=== PATIENT | male | born 1955 | race Caucasian/White ===

== ENCOUNTER 2017-02-02 20:10 | Emergency (ER) | payer BC ==
[~2017-02-02] VITALS: Ht 188 cm; Wt 101.5 kg
[~2017-02-02 20:10] MED LIST: AUGMENTIN875 MG PO; CLONAZEPAM0.5 MG PO; Ecotrin PO; FINASTERIDE5 MG PO; FLEXERIL10 MG PO; LEXAPRO10 MG PO; LIPITOR40 MG PO; MOTRIN600 MG PO; NORCO 5/3251 TABLET PO; SKELAXIN800 MG PO; TAMSULOSIN HCL0.4 MG PO; VITAMIN D2000 UNIT PO; [UNRECOGNIZED DRUG - REMARK] PO
[2017-02-02 20:46] LABS: HEMATOCRIT 48.4 % (38.0-50.0); MCH 28.6 PG (29.0-34.0); MCHC 33.3 G/DL (30.0-36.0); MEAN PLAT.VOLUME 10.4 uM^3 (9.0-12.4); PLATELET COUNT 221 K/uL (156-360); RBC DIS.WIDTH-CV 12.8 % (11.8-14.6); RBC DIS.WIDTH-SD 39.4 % (39-53); RED BLOOD COUNT 5.63 M/uL (4.00-5.50)
[2017-02-02 20:51] LABS: CHLORIDE 106 mEq/L (99-109); SODIUM 140 mEq/L (136-147)
[2017-02-02 20:53] LABS: GLUCOSE 110 mg/dL (70-99)
[2017-02-02 20:54] LABS: ANION GAP 14 MEQ/L (2-14)
[2017-02-02 20:55] LABS: TOTAL BILIRUBIN 1.7 mg/dL (0.0-1.0)
[2017-02-02 20:56] LABS: ALKALINE PHOSPHATASE 74 IU/L (3-129)
[2017-02-02 20:57] LABS: GFR ESTIMATE (CALCULATED) 54 mL/min/
[2017-02-02 20:58] LABS: UREA NITROGEN (BUN) 15 mg/dL (9-23)
[2017-02-02 21:33] LABS: ADD MIUA? YES; BILIRUBIN NEGATIVE; BLOOD MODERATE; COLOR YELLOW ((YELLOW)); GLUCOSE (STRIP) NEGATIVE; KETONES NEGATIVE; LEUKOCYTES TRACE; NITRITE NEGATIVE; PROTEIN (STRIP) 30; SPECIFIC GRAVITY 1.018 (1.000-1.030); UROBILINOGEN 0.2 MG/DL (0.2-1.0)
[2017-02-02 21:40] LABS: BACTERIA RARE /HPF; CALCIUM OXALATE CRYSTALS 2+ /HPF; EPITHELIAL CELLS RARE /HPF; MUCUS TRACE /LPF; RED BLOOD CELLS 40-50 /HPF (0-5); UCUL ADDED? NO
[2017-02-02] MEDS ORDERED: NORCO 5/3251 TABLET PO (23:10)
[2017-02-02] MEDS ORDERED: CIPRO500 MG PO (23:10)
[2017-02-02] MEDS ORDERED: ZOFRAN4 MG PO (23:10)
[2017-02-02 23:55] VITALS: BP 137/84
== END 2017-02-02 23:56 | disposition home or self-care (01) ==
LOC: EME 20:10
PROVIDERS: Physician Assistant
DX: N20.0 Calculus of kidney (principal); R11.2 Nausea with vomiting, unspecified; E78.5 Hyperlipidemia, unspecified; Z87.891 Personal history of nicotine dependence
CPT/HCPCS: 74176; 80053; 81003; 85027; 99281; 99284; J2270; J2405; J7030

== ENCOUNTER 2017-02-23 23:47 | Observation (INO) | payer BC ==
[~2017-02-23] VITALS: Ht 188 cm; Wt 101.6 kg
[~2017-02-23 23:47] MED LIST changes: +CIPRO500 MG PO; +ZOFRAN4 MG PO
[2017-02-24 00:23] LABS: HEMATOCRIT 47.6 % (38.0-50.0); MCH 28.2 PG (29.0-34.0); MCHC 32.1 G/DL (30.0-36.0); MCV 87.7 FL (86-99); MEAN PLAT.VOLUME 9.1 uM^3 (9.0-12.4); PLATELET COUNT 230 K/uL (156-360); RBC DIS.WIDTH-CV 12.3 % (11.8-14.6); RBC DIS.WIDTH-SD 39.4 % (39-53); RED BLOOD COUNT 5.43 M/uL (4.00-5.50); WHITE BLOOD COUNT 10.7 K/uL (4.1-10.2)
[2017-02-24 00:36] LABS: CHLORIDE 104 mEq/L (99-109); POTASSIUM 4.1 mEq/L (3.7-5.4); SODIUM 138 mEq/L (136-147)
[2017-02-24 00:38] LABS: GLUCOSE 98 mg/dL (70-99)
[2017-02-24 00:39] LABS: ANION GAP 9 MEQ/L (2-14)
[2017-02-24 00:40] LABS: TOTAL BILIRUBIN 1.7 mg/dL (0.0-1.0)
[2017-02-24 00:41] LABS: ALKALINE PHOSPHATASE 69 IU/L (3-129)
[2017-02-24 00:42] LABS: GFR ESTIMATE (CALCULATED) 50 mL/min/
[2017-02-24 00:43] LABS: UREA NITROGEN (BUN) 18 mg/dL (9-23)
[2017-02-24] MEDS ORDERED: PERCOCET 5/31 TABLET PO (00:57)
[2017-02-24 03:00] LABS: COLOR YELLOW ((YELLOW)); LEUKOCYTES TRACE; NITRITE NEGATIVE; SPECIFIC GRAVITY 1.018 (1.000-1.030)
[2017-02-24 03:01] LABS: ADD MIUA? YES; BILIRUBIN NEGATIVE; BLOOD MODERATE; GLUCOSE (STRIP) NEGATIVE; KETONES NEGATIVE; PROTEIN (STRIP) NEGATIVE; RED BLOOD CELLS TNTC /HPF (0-5); UROBILINOGEN 0.2 MG/DL (0.2-1.0)
[2017-02-24 03:02] LABS: WHITE BLOOD CELLS 15-20 /HPF (0-5)
[2017-02-24 03:03] LABS: BACTERIA NONE SEEN /HPF; CALCIUM OXALATE CRYSTALS 1+ /HPF; CASTS NONE SEEN /LPF; CRYSTALS PRESENT; EPITHELIAL CELLS RARE /HPF; MUCUS 1+ /LPF; UCUL ADDED? NO
[2017-02-24 06:06] VITALS: BP 132/61
[2017-02-24 07:50] VITALS: BP 93/51
== END 2017-02-24 11:08 | disposition home or self-care (01) ==
LOC: EME 23:47 → EDOF 02-24 05:04 → 5WEST 02-24 05:52
PROVIDERS: Physician Assistant
DX: N13.2 Hydronephrosis with renal and ureteral calculous obstruction (principal); N17.9 Acute kidney failure, unspecified; N39.0 Urinary tract infection, site not specified
CPT/HCPCS: 74176; 80053; 81003; 85027; 99281; 99285; G0378; J0696; J1956; J2270; J2405; J7030; J7050; J7512; S0028

== ENCOUNTER 2017-02-25 01:36 | Emergency (ER) | payer BC ==
[~2017-02-25] VITALS: Ht 188 cm; Wt 102.1 kg
[~2017-02-25 01:36] MED LIST changes: +PERCOCET 5/31 TABLET PO
[2017-02-25 02:01] LABS: HEMATOCRIT 46.2 % (38.0-50.0); MCH 28.4 PG (29.0-34.0); MCHC 32.5 G/DL (30.0-36.0); MCV 87.3 FL (86-99); MEAN PLAT.VOLUME 9.5 uM^3 (9.0-12.4); PLATELET COUNT 223 K/uL (156-360); RBC DIS.WIDTH-CV 12.3 % (11.8-14.6); RED BLOOD COUNT 5.29 M/uL (4.00-5.50); WHITE BLOOD COUNT 11.9 K/uL (4.1-10.2)
[2017-02-25 02:11] LABS: CHLORIDE 105 mEq/L (99-109); SODIUM 139 mEq/L (136-147)
[2017-02-25 02:13] LABS: GLUCOSE 110 mg/dL (70-99)
[2017-02-25 02:14] LABS: ANION GAP 11 MEQ/L (2-14)
[2017-02-25 02:16] LABS: GFR ESTIMATE (CALCULATED) > 59 mL/min/
[2017-02-25 02:17] LABS: UREA NITROGEN (BUN) 18 mg/dL (9-23)
[2017-02-25 03:02] LABS: ADD MIUA? YES; BILIRUBIN NEGATIVE; BLOOD MODERATE; COLOR YELLOW ((YELLOW)); GLUCOSE (STRIP) NEGATIVE; KETONES NEGATIVE; LEUKOCYTES TRACE; NITRITE NEGATIVE; PROTEIN (STRIP) NEGATIVE; SPECIFIC GRAVITY 1.017 (1.000-1.030); UROBILINOGEN 0.2 MG/DL (0.2-1.0)
[2017-02-25 03:09] LABS: BACTERIA NONE SEEN /HPF; EPITHELIAL CELLS RARE /HPF; MUCUS TRACE /LPF; RED BLOOD CELLS 40-50 /HPF (0-5); UCUL ADDED? NO
[2017-02-25 04:15] VITALS: BP 140/76
== END 2017-02-25 04:16 | disposition home or self-care (01) ==
LOC: EME 01:36
DX: N13.2 Hydronephrosis with renal and ureteral calculous obstruction (principal); E78.5 Hyperlipidemia, unspecified; Z87.442 Personal history of urinary calculi; Z88.7 Allergy status to serum and vaccine; Z87.891 Personal history of nicotine dependence
CPT/HCPCS: 74176; 80048; 81003; 85027; 87086; 99281; 99285; J1885; J2270; J2405

== ENCOUNTER 2017-02-27 05:27 | Day surgery (SDC) | payer BC ==
[~2017-02-27] VITALS: Ht 188 cm; Wt 101.6 kg
[2017-02-27 05:55] VITALS: BP 130/71
[2017-02-27 09:15] VITALS: BP 128/75
[2017-02-27 10:20] VITALS: BP 114/68
[2017-02-27 12:00] VITALS: BP 127/71
== END 2017-02-27 12:17 | disposition home or self-care (01) ==
LOC: SDC 05:27
PROVIDERS: Urology
DX: N20.1 Calculus of ureter (principal); N21.0 Calculus in bladder; N40.1 Benign prostatic hyperplasia with lower urinary tract symptoms; R35.0 Frequency of micturition; R35.1 Nocturia; R39.12 Poor urinary stream; E78.00 Pure hypercholesterolemia, unspecified; K21.9 Gastro-esophageal reflux disease without esophagitis; F41.8 Other specified anxiety disorders; G47.30 Sleep apnea, unspecified; Z87.891 Personal history of nicotine dependence; Z80.1 Family history of malignant neoplasm of trachea, bronchus and lung
CPT/HCPCS: 74420; 82365 90; C1758; C1769; C1876; J1100; J1885; J2250; J2405; J3010; J3370

== ENCOUNTER 2017-05-07 07:54 | Emergency (ER) | payer BC ==
[~2017-05-07] VITALS: Ht 188 cm; Wt 100.0 kg
[2017-05-07 08:34] LABS: HEMATOCRIT 47.1 % (38.0-50.0); MCH 28.7 PG (29.0-34.0); MCHC 32.9 G/DL (30.0-36.0); MCV 87.1 FL (86-99); MEAN PLAT.VOLUME 9.5 uM^3 (9.0-12.4); PLATELET COUNT 206 K/uL (156-360); RBC DIS.WIDTH-CV 12.7 % (11.8-14.6); RBC DIS.WIDTH-SD 40.2 % (39-53); RED BLOOD COUNT 5.41 M/uL (4.00-5.50)
[2017-05-07 08:45] LABS: CHLORIDE 105 mEq/L (99-109); POTASSIUM 3.9 mEq/L (3.7-5.4); SODIUM 138 mEq/L (136-147)
[2017-05-07 08:47] LABS: GLUCOSE 148 mg/dL (70-99)
[2017-05-07 08:48] LABS: ANION GAP 11 MEQ/L (2-14)
[2017-05-07 08:50] LABS: GFR ESTIMATE (CALCULATED) > 59 mL/min/
[2017-05-07 08:51] LABS: UREA NITROGEN (BUN) 12 mg/dL (9-23)
[2017-05-07 12:26] VITALS: BP 116/71
== END 2017-05-07 12:36 | disposition home or self-care (01) ==
LOC: EME 07:54
DX: R51 Headache (principal); H02.402 Unspecified ptosis of left eyelid; R11.0 Nausea; J32.0 Chronic maxillary sinusitis; E78.5 Hyperlipidemia, unspecified; Z87.891 Personal history of nicotine dependence
CPT/HCPCS: 70450; 70551; 71020; 80048; 85027; 93005; 99281; 99284

== ENCOUNTER 2017-09-06 00:06 | Emergency (ER) | payer BC ==
[~2017-09-06] VITALS: Ht 188 cm; Wt 103.0 kg
[2017-09-06 00:34] LABS: HEMATOCRIT 47.3 % (38.0-50.0); MCH 28.9 PG (29.0-34.0); MCHC 33.4 G/DL (30.0-36.0); MCV 86.6 FL (86-99); MEAN PLAT.VOLUME 9.4 uM^3 (9.0-12.4); PLATELET COUNT 206 K/uL (156-360); RBC DIS.WIDTH-CV 12.4 % (11.8-14.6); RBC DIS.WIDTH-SD 39.3 % (39-53); RED BLOOD COUNT 5.46 M/uL (4.00-5.50); WHITE BLOOD COUNT 9.3 K/uL (4.1-10.2)
[2017-09-06 00:42] LABS: CHLORIDE 103 mEq/L (99-109); POTASSIUM 3.4 mEq/L (3.7-5.4); SODIUM 135 mEq/L (136-147)
[2017-09-06 00:44] LABS: GLUCOSE 149 mg/dL (70-99)
[2017-09-06 00:45] LABS: ANION GAP 8 MEQ/L (2-14)
[2017-09-06 00:46] LABS: TOTAL BILIRUBIN 1.6 mg/dL (0.0-1.0)
[2017-09-06 00:48] LABS: ALKALINE PHOSPHATASE 99 IU/L (3-129); GFR ESTIMATE (CALCULATED) > 59 mL/min/
[2017-09-06 00:49] LABS: UREA NITROGEN (BUN) 13 mg/dL (9-23)
[2017-09-06 01:33] LABS: ADD MIUA? NO; BILIRUBIN NEGATIVE; BLOOD NEGATIVE; COLOR STRAW ((YELLOW)); GLUCOSE (STRIP) NEGATIVE; KETONES NEGATIVE; LEUKOCYTES NEGATIVE; NITRITE NEGATIVE; PROTEIN (STRIP) NEGATIVE; SPECIFIC GRAVITY 1.006 (1.000-1.030); UCUL ADDED? NO; UROBILINOGEN 0.2 MG/DL (0.2-1.0)
[2017-09-06 02:17] VITALS: BP 132/78
== END 2017-09-06 02:22 | disposition home or self-care (01) ==
LOC: EME 00:06
DX: R10.9 Unspecified abdominal pain (principal); N20.0 Calculus of kidney; I10 Essential (primary) hypertension; E78.5 Hyperlipidemia, unspecified; F32.9 Major depressive disorder, single episode, unspecified; K21.9 Gastro-esophageal reflux disease without esophagitis; F41.9 Anxiety disorder, unspecified; Z87.891 Personal history of nicotine dependence; Z88.7 Allergy status to serum and vaccine
CPT/HCPCS: 74176; 80053; 81003; 85027; 99281; 99285

== ENCOUNTER 2018-02-10 14:06 | Emergency (ER) | payer BC ==
[~2018-02-10] VITALS: Ht 188 cm; Wt 101.7 kg
[2018-02-10 15:15] LABS: HEMOGLOBIN 15.7 G/DL (12.5-16.6); MCH 29.3 PG (29.0-34.0); MCHC 33.4 G/DL (30.0-36.0); MCV 87.9 FL (86-99); PLATELET COUNT 223 K/uL (156-360); RBC DIS.WIDTH-CV 12.2 % (11.8-14.6); RBC DIS.WIDTH-SD 39.1 % (39-53); RED BLOOD COUNT 5.35 M/uL (4.00-5.50); WHITE BLOOD COUNT 8.7 K/uL (4.1-10.2)
[2018-02-10 15:36] LABS: CHLORIDE 103 MEQ/L (99-109); SODIUM 138 MEQ/L (136-147)
[2018-02-10 15:42] LABS: CREATININE 1.1 MG/DL (0.6-1.3); GFR ESTIMATE (CALCULATED) > 59 mL/min/ (58.99-99999); GLUCOSE 106 mg/dL (70-99); UREA NITROGEN (BUN) 12 mg/dL (9-23)
[2018-02-10 15:46] LABS: TROP-I INTERPRETATION NEGATIVE; TROPONIN-I < 0.01 ng/mL (0.0-0.30)
[2018-02-10 19:15] LABS: TROP-I INTERPRETATION NEGATIVE; TROPONIN-I < 0.01 ng/mL (0.0-0.30)
[2018-02-10 19:53] VITALS: BP 149/74
== END 2018-02-10 19:53 | disposition home or self-care (01) ==
LOC: EME 14:06
PROVIDERS: Nurse Practitioner Family
DX: R00.2 Palpitations (principal); E78.5 Hyperlipidemia, unspecified; K21.9 Gastro-esophageal reflux disease without esophagitis; I45.10 Unspecified right bundle-branch block; F41.9 Anxiety disorder, unspecified; F32.9 Major depressive disorder, single episode, unspecified; Z87.442 Personal history of urinary calculi; Z87.891 Personal history of nicotine dependence; Z88.7 Allergy status to serum and vaccine; Z88.1 Allergy status to other antibiotic agents
CPT/HCPCS: 71046; 80048; 84484; 85027; 93005; 99281; 99284

== ENCOUNTER 2018-06-01 21:18 | Emergency (ER) | payer BC ==
[2018-06-02] MEDS ORDERED: ZOFRAN ODT4 MG PO (20:43)
[2018-06-02] MEDS ORDERED: PERCOCET 5/31 TABLET PO (20:43)
== END 2018-06-01 22:04 | disposition left against medical advice (07) ==
LOC: EME 21:18
DX: R10.9 Unspecified abdominal pain (principal); Z53.21 Procedure and treatment not carried out due to patient leaving prior to being seen by health care provider

== ENCOUNTER 2018-06-02 18:38 | Emergency (ER) | payer BC ==
[~2018-06-02] VITALS: Ht 188 cm; Wt 112.5 kg
[2018-06-02 19:35] LABS: APPEARANCE SL.HAZY ((CLEAR)); BILIRUBIN NEGATIVE; BLOOD MODERATE; COLOR YELLOW ((YELLOW)); GLUCOSE (STRIP) NEGATIVE; KETONES NEGATIVE; LEUKOCYTES MODERATE; NITRITE NEGATIVE; PROTEIN (STRIP) 30; SPECIFIC GRAVITY 1.026 (1.000-1.030); UROBILINOGEN 0.2 MG/DL (0.2-1.0)
[2018-06-02 19:40] LABS: HEMATOCRIT 48.1 % (38.0-50.0); HEMOGLOBIN 16.2 G/DL (12.5-16.6); MCH 29.7 PG (29.0-34.0); MCHC 33.7 G/DL (30.0-36.0); MCV 88.1 FL (86-99); PLATELET COUNT 224 K/uL (156-360); RBC DIS.WIDTH-CV 12.2 % (11.8-14.6); RBC DIS.WIDTH-SD 38.9 % (39-53); RED BLOOD COUNT 5.46 M/uL (4.00-5.50); WHITE BLOOD COUNT 13.4 K/uL (4.1-10.2)
[2018-06-02 19:46] LABS: BACTERIA RARE /HPF; CALCIUM OXALATE CRYSTALS 1+ /HPF; EPITHELIAL CELLS RARE /HPF; MUCUS 2+ /LPF; RED BLOOD CELLS 30-40 /HPF (0-5); UCUL ADDED? YES; WHITE BLOOD CELLS 30-40 /HPF (0-5)
[2018-06-02 19:50] LABS: CHLORIDE 104 mEq/L (99-109); POTASSIUM 3.8 mEq/L (3.7-5.4); SODIUM 139 mEq/L (136-147)
[2018-06-02 19:52] LABS: GLUCOSE 108 mg/dL (70-99)
[2018-06-02 19:55] LABS: CREATININE 1.3 mg/dL (0.6-1.3); GFR ESTIMATE (CALCULATED) > 59 mL/min/ (58.99-99999)
[2018-06-02 19:56] LABS: UREA NITROGEN (BUN) 16 mg/dL (9-23)
[2018-06-02] MEDS ORDERED: PERCOCET 5/31 TABLET PO (20:43)
[2018-06-02] MEDS ORDERED: ZOFRAN ODT4 MG PO (20:43)
[2018-06-02 21:35] VITALS: BP 148/77
== END 2018-06-02 21:35 | disposition home or self-care (01) ==
LOC: EME 18:38
DX: N13.2 Hydronephrosis with renal and ureteral calculous obstruction (principal); E78.5 Hyperlipidemia, unspecified; K21.9 Gastro-esophageal reflux disease without esophagitis; F41.9 Anxiety disorder, unspecified; F32.9 Major depressive disorder, single episode, unspecified; Z87.442 Personal history of urinary calculi; Z87.891 Personal history of nicotine dependence; Z88.7 Allergy status to serum and vaccine; Z88.1 Allergy status to other antibiotic agents
CPT/HCPCS: 74176; 80048; 81003; 85027; 87086; 99281; 99285; J1885; J2270; J7030